=== PATIENT | male | born 1965 | race Caucasian/White ===

== ENCOUNTER → 2019-06-07 | Outpatient (REF) | payer OTHER | LOC: M LAB REF 12:31 | PROVIDERS: ATTEND Ophthalmology | DX: H01.009 Unspecified blepharitis unspecified eye, unspecified eyelid (principal) ==

== ENCOUNTER → 2020-10-05 | Outpatient (CLI) | payer OTHER ==
[~2020-10-05] MED LIST: ACET500C10 PO; ALLO100T PO; BIMA01SOL OS; LISI-898 PO; METF-839 PO; SIMV20TA22 PO
== END ==
LOC: M LABSMTC 09:50
PROVIDERS: ATTEND Anesthesiology
DX: Z01.812 Encounter for preprocedural laboratory examination (principal); Z20.822 Contact with and (suspected) exposure to COVID-19

== ENCOUNTER 2020-10-10 07:01 | Day surgery (SDC) | payer OTHER ==
[~2020-10-10] VITALS: Ht 175.3 cm; Wt 76.2 kg
[~2020-10-10 07:01] MED LIST changes: +NS 1,000 ML IV ONE
[2020-10-10] MEDS ORDERED: LIDOCAINE 2% 100MG/5ML SDV (FOR ANES.) As Ordered ONE (07:08)
[2020-10-10] MEDS ORDERED: propofoL 200 MG/20 ML VIAL As Ordered ONE (07:08)
--- NOTE | 2020-10-10 08:53 | ROOR ---
Patient Name: Mike Cardozo Procedure Date: 10/10/2020 8:20 AM Date of : 1965 Age: 54 Room: [facility] Gender: Male Note Status: Finalized Procedure: Colonoscopy Indications: High risk colon cancer surveillance: Personal history of colonic polyps Providers: Ba Dhaliwal MD Referring MD: Kiah Zarco MD Requesting Provider: Medicines: Monitored Anesthesia Care Complications: No immediate complications. Procedure: Pre-Anesthesia Assessment: - Prior to the procedure, a History and Physical was performed, and patient medications and allergies were reviewed. The patient is competent. The risks and benefits of the procedure and the sedation options and risks were discussed with the patient. All questions were answered and informed consent was obtained. Patient identification and proposed procedure were verified by the physician, the nurse and the anesthesiologist in the endoscopy suite. Mental Status Examination: alert and oriented. Airway Examination: normal oropharyngeal airway and neck mobility. Respiratory Examination: clear to auscultation. CV Examination: normal. Prophylactic Antibiotics: The patient does not require prophylactic antibiotics. Prior Anticoagulants: The patient has taken no previous anticoagulant or antiplatelet agents. ASA Grade Assessment: II - A patient with mild systemic disease. After reviewing the risks and benefits, the patient was deemed in satisfactory condition to undergo the procedure. The anesthesia plan was to use monitored anesthesia care (MAC). Immediately prior to administration of medications, the patient was re-assessed for adequacy to receive sedatives. The heart rate, respiratory rate, oxygen saturations, blood pressure, adequacy of pulmonary ventilation, and response to care were monitored throughout the procedure. The physical status of the patient was re-assessed after the procedure. The Colonoscope was introduced through the anus and advanced to the cecum, identified by appendiceal orifice and ileocecal valve. The colonoscopy was performed without difficulty. The patient tolerated the procedure well. The quality of the bowel preparation was good. Findings: Hemorrhoids were found on perianal exam. A few small-mouthed diverticula were found in the sigmoid colon and descending colon. Two sessile polyps were found in the ascending colon. The polyps were 1 to 2 mm in size. These polyps were removed with a cold biopsy forceps. Resection and retrieval were complete. Estimated blood loss was minimal. A 4 mm polyp was found in the sigmoid colon. The polyp was sessile. The polyp was removed with a cold snare. Resection and retrieval were complete. The exam was otherwise without abnormality on direct and retroflexion views. Impression: - Hemorrhoids found on perianal exam. - Diverticulosis in the sigmoid colon and in the descending colon. - Two 1 to 2 mm polyps in the ascending colon, removed with a cold biopsy forceps. Resected and retrieved. - One 4 mm polyp in the sigmoid colon, removed with a cold snare. Resected and retrieved. - The examination was otherwise normal on direct and retroflexion views. Recommendation: - Discharge patient to home (ambulatory). - High fiber diet indefinitely. - Await pathology results. - Repeat colonoscopy in 5 years for surveillance. Procedure Code(s): --- Professional --- 62313, Colonoscopy, flexible; with removal of tumor(s), polyp(s), or other lesion(s) by snare technique 13306, 59, Colonoscopy, flexible; with biopsy, single or multiple Diagnosis Code(s): --- Professional --- K63.5, Polyp of colon Z86.010, Personal history of colonic polyps K64.9, Unspecified hemorrhoids K57.30, Diverticulosis of large intestine without perforation or abscess without bleeding CPT copyright 2019 [employer]. All rights reserved. The codes documented in this report are preliminary and upon owner operator review may be revised to meet current compliance requirements. Ba Dhaliwal MD Ba Dhaliwal MD 10/10/2020 8:53:33 AM Electronically signed by Ba Dhaliwal MD Number of Addenda: 0 Note Initiated On: 10/10/2020 8:20 AM Estimated Blood Loss: Estimated blood loss: none. Estimated blood loss was minimal.
[2020-10-10 09:13] VITALS: BP 110/66
== END 2020-10-10 09:15 | disposition home or self-care (01) ==
LOC: M OPP 07:01
PROVIDERS: ATTEND Surgery
DX: Z12.11 Encounter for screening for malignant neoplasm of colon (principal); Z86.010 Personal history of colon polyps; K63.5 Polyp of colon; K64.8 Other hemorrhoids; K57.30 Diverticulosis of large intestine without perforation or abscess without bleeding; E11.9 Type 2 diabetes mellitus without complications; Z79.84 Long term (current) use of oral hypoglycemic drugs; Z79.899 Other long term (current) drug therapy; Z88.8 Allergy status to other drugs, medicaments and biological substances; Z87.891 Personal history of nicotine dependence

== ENCOUNTER 2023-09-13 10:28 | Emergency (ER) | payer OTHER ==
[~2023-09-13] VITALS: Ht 177.8 cm; Wt 86.4 kg
[~2023-09-13 10:28] MED LIST changes: -LISI-898 PO; +LISI5TAB11 PO; -NS 1,000 ML IV ONE
[2023-09-13 12:11] VITALS: BP 136/76; TEMP 97.9; O2SAT 100
== END 2023-09-13 12:20 | disposition home or self-care (01) ==
LOC: M ED 10:28
DX: S93.491A Sprain of other ligament of right ankle, initial encounter (principal); Y92.019 Unspecified place in single-family (private) house as the place of occurrence of the external cause; Y93.01 Activity, walking, marching and hiking; Y99.9 Unspecified external cause status; W10.9XXA Fall (on) (from) unspecified stairs and steps, initial encounter; E11.9 Type 2 diabetes mellitus without complications; M10.9 Gout, unspecified; F10.10 Alcohol abuse, uncomplicated; Z88.8 Allergy status to other drugs, medicaments and biological substances; Z79.899 Other long term (current) drug therapy; Z79.84 Long term (current) use of oral hypoglycemic drugs